=== PATIENT | male | born 1970 | race African-American/Black ===

== ENCOUNTER 2017-10-27 16:16 | Emergency (ER) | payer OTHER ==
[~2017-10-27] VITALS: Ht 188 cm; Wt 108.9 kg
[2017-10-27 17:14] LABS: Basophils # (auto) 0 uL; Basophils % (auto) 0.4 % (0.0-2.0); Eosinophils # (auto) 0.1 uL; Eosinophils % (auto) 1.5 % (0.0-7.0); Hemoglobin 14.9 g/dL (13.5-17.5); Lymphocytes # (auto) 1.3 uL; Lymphocytes % (auto) 20.4 % (10.0-50.0); Mean Corpuscular Hemoglobin 29.1 pg (28.0-32.0); Mean Corpuscular Hgb Conc. 33.2 g/dL (32.0-36.0); Mean Corpuscular Volume 87.8 fL (80.0-100.0); Monocytes # (auto) 0.6 uL; Monocytes % (auto) 8.5 % (0.0-12.0); Neutrophils # (auto) 4.5 uL; Neutrophils % (auto) 69.2 % (37.0-80.0); Nucleated Red Blood Cells % 0.2 %; Platelet Count (auto) 195 10^3/uL (140-450); Red Blood Cells 5.12 10^6/uL (4.5-5.90); Red Cell Distribution Width 13.6 % (11.8-14.3); White Blood Cell 6.5 10^3/uL (4.4-10.8)
[2017-10-27 17:26] LABS: BUN/Creatinine Ratio 14.6; Potassium 3.5 mmol/L (3.5-5.1)
[2017-10-27 20:26] VITALS: BP 117/69
[2017-10-27] MEDS ORDERED: ONDANSETRON ODT 4 MG TAB PO ONE (20:45)
== END 2017-10-27 20:48 | disposition home or self-care (01) ==
LOC: ER 16:20
DX: R11.2 Nausea with vomiting, unspecified (principal)
CPT/HCPCS: 36415; 80048; 82150; 83690; 85025; 99284; Q0162